=== PATIENT | male | born 1965 | race Caucasian/White ===

== ENCOUNTER 2023-06-09 10:17 | Day surgery (SDC) | payer BC ==
[2023-06-09] MEDS: Lactated Ringers 1,000 ML IV SCH (10:32)
[2023-06-09] MEDS ORDERED: Phenylephrine 1% 10 MG/ML SDV ONE (10:55)
[2023-06-09] MEDS ORDERED: Ketamine 200 MG/20 ML MDV ONE (10:55)
[2023-06-09] MEDS ORDERED: fentaNYL 50 MCG/ML SDV ONE (10:55)
[2023-06-09] MEDS ORDERED: Flumazenil 0.1 MG/ML 10 ML MDV ONE (10:55)
[2023-06-09] MEDS ORDERED: Propofol 200 MG/20 ML SDV ONE ×2 (10:55)
[2023-06-09] MEDS ORDERED: Midazolam 1 MG/ML 2 ML SDV ONE (10:55)
[2023-06-09 12:56] VITALS: BP 103/73; PULSE 70
== END 2023-06-09 13:10 | disposition home or self-care (01) ==
LOC: CC.SDS 10:17
PROVIDERS: ATTEND Family Medicine
DX: K29.50 Unspecified chronic gastritis without bleeding (principal); K20.0 Eosinophilic esophagitis; D12.2 Benign neoplasm of ascending colon; D12.3 Benign neoplasm of transverse colon; D12.5 Benign neoplasm of sigmoid colon; D12.8 Benign neoplasm of rectum; K21.9 Gastro-esophageal reflux disease without esophagitis; R19.5 Other fecal abnormalities; K25.9 Gastric ulcer, unspecified as acute or chronic, without hemorrhage or perforation; E78.5 Hyperlipidemia, unspecified; I10 Essential (primary) hypertension; E66.01 Morbid (severe) obesity due to excess calories; R39.89 Other symptoms and signs involving the genitourinary system; I25.10 Atherosclerotic heart disease of native coronary artery without angina pectoris; Z68.45 Body mass index [BMI] 70 or greater, adult; Z98.890 Other specified postprocedural states; Z79.899 Other long term (current) drug therapy; Z87.891 Personal history of nicotine dependence
CPT/HCPCS: 00813; 87081; J2250; J2371; J2704; J3010; J3490; J7120